=== PATIENT | female | born 1960 | race Caucasian/White ===

== ENCOUNTER 2016-11-05 06:11 | Day surgery (SDC) | payer BC ==
[~2016-11-05 06:11] MED LIST: Buffered Lidocaine 0.9% SYRIN* 5 ML/SYR SYRINGE INTRADERM ONE; Sodium Citrate/Citric Acid* 15 ML UDC PO ONE
[2016-11-05] MEDS ORDERED: ceFAZolin 2 GM PREMIX(*) 2 GM/50 ML BAG IVPB ONE (06:15)
[2016-11-05] MEDS ORDERED: Buffered Lidocaine 0.9% SYRIN* 5 ML/SYR SYRINGE ONE (06:15)
[2016-11-05] MEDS ORDERED: Sodium Citrate/Citric Acid* 15 ML UDC ONE (06:15)
[2016-11-05] MEDS ORDERED: Ketorolac INJ* 30 MG/ML 1 ML VIAL ONE (06:15)
[2016-11-05] MEDS ORDERED: Bupivacaine 0.25% EPI 200,000* 30 ML SDV ONE (07:15)
[2016-11-05] MEDS ORDERED: Propofol* 10 MG/ML 20 ML BTL IV PUSH ONE (07:36)
[2016-11-05] MEDS ORDERED: Lidocaine 2% PF * 5 ML VIAL ONE (07:36)
[2016-11-05] MEDS ORDERED: Rocuronium* 10 MG/ML VIAL ONE (07:36)
[2016-11-05] MEDS ORDERED: Midazolam* 1 MG/ML 2 ML VIAL (2 MG) ONE (07:37)
[2016-11-05] MEDS ORDERED: fentaNYL* 50 MCG/ML 2 ML VIAL (100 MCG VIAL) ONE (07:37)
[2016-11-05] MEDS ORDERED: Glycopyrrolate IV* 0.2 MG/ML 1 ML VIAL ONE (08:18)
[2016-11-05] MEDS ORDERED: Dexamethasone IV* 4 MG/ML 1 ML (4 MG) ONE (08:18)
[2016-11-05] MEDS ORDERED: Neostigmine Methylsulfate* 2 MG/2 ML SYRINGE ONE (08:18)
[2016-11-05] MEDS ORDERED: Ondansetron INJ* 2 MG/ML VIAL IV PRN (08:19)
[2016-11-05] MEDS ORDERED: fentaNYL* 50 MCG/ML 2 ML VIAL (100 MCG VIAL) IV PRN (08:19)
--- NOTE | 2016-11-05 09:03 | PN ---
Progress Note - Progress Note Date of Service: 11/05/16 Note: Brief Operative Note Operative date: 11/05/2016 Preoperative dx: Cholelithiasis Postoperative dx: same Procedure: Laparoscopic cholecysdectomy Anesthesia: General Surgeon: Dr. Davis Assist: Arvin VALENCIA, Gege MENDIOLA EBL: 25 mL Specimen: gallbladder Fluids: 1 L LR Drains: none Findings: See dictated note
[2016-11-05] MEDS ORDERED: HYDROcodone/ACETAMIN 5-325 MG* 1 TAB PO PRN (09:04)
[2016-11-05] MEDS ORDERED: Ondansetron INJ* 2 MG/ML VIAL ONE (09:15)
[2016-11-05 10:07] VITALS: BP 126/68
--- NOTE | 2016-11-05 13:11 | OP ---
CC: Dr. Álvaro Davis; Karol Hu NP OPERATIVE REPORT: DATE OF OPERATION: 11/05/16 DATE OF : 60 SURGEON: Álvaro Davis MD PICK UP AND DELIVERY DRIVER: WIL Dumont ANESTHESIOLOGIST: Mauro Ballard DO ANESTHESIA: General anesthetic, local infiltration. PRE-OP DIAGNOSIS: Symptomatic cholelithiasis. POST-OP DIAGNOSIS: Symptomatic cholelithiasis. OPERATIVE PROCEDURE: Laparoscopic cholecystectomy. DESCRIPTION OF PROCEDURE: The patient was supine in the operative table. After adequate general an esthetic, compression stockings, Abiodun Hugger warmer, and intravenous antibiotics, the abdomen was pr epped with antiseptic and draped in a sterile fashion. Local infiltrative anesthesia was administer ed. Small umbilical incision was created. A blunt port was cannula was placed. Insufflation was c arried out with carbon dioxide. Additional cannulae, 5-mm anterior axillary line and midclavicular line and 12-mm subxiphoid, were placed through small stab wounds under direct vision. The gallbladd er was tented up where there were few adhesions to the omentum and these were readily taken down. A reolar tissue was taken down off the cystic duct and cystic artery which were readily identified, cl ipped and divided. The common duct was seen and kept out of harm's way. The gallbladder was taken off the liver bed with electrocautery. Hemostasis was excellent. The gallbladder was removed throu gh the subxiphoid port. Pneumoperitoneum was allowed to escape. Cannulae removed. Umbilical fasci a was closed with 0 Polysorb and skin with 5-0 Polysorb in all cases followed by Steri-Strips and st erile dressing. She tolerated the procedure well, was brought to Recovery in good condition. There were no complications. No drains. Pathologic specimen was gallbladder. Sponge and instrument cou nts correct. Estimated blood loss was less than 30 mL. [id number]/[facility] #: [id number]
== END 2016-11-05 10:30 | disposition home or self-care (01) ==
LOC: OR 06:11
PROVIDERS: ATTEND Surgery
DX: K80.10 Calculus of gallbladder with chronic cholecystitis without obstruction (principal); F17.210 Nicotine dependence, cigarettes, uncomplicated; Z68.32 Body mass index [BMI] 32.0-32.9, adult
CPT/HCPCS: 88304; A9270-GY; J0690; J1100; J1885; J2250; J2405; J2704; J3010